=== PATIENT | male | born 2000 | race Two or more races ===

== ENCOUNTER 2025-03-08 21:52 | Emergency (ER) | payer BC, SELFPAY ==
[2025-03-08 22:08] VITALS: TEMP 38.8
[2025-03-08 22:11] VITALS: BP 126/60; PULSE 104; RESP 18; O2SAT 97; BMI 23.8
--- NOTE | 2025-03-08 22:33 | EDNOTE_ITS ---
Upper Respiratory Inf. RME/HPI General Chief Complaint: Flu Like Symptoms Stated Complaint: FEVER COUGH CONGESTION Time Seen by Provider: 03/08/25 22:12 Arrival date/time: 03/08/25 21:52 24M with no significant PMH presents to ED with several days of nasal congestion/pain, cough, and fevers/chills. Limitations: no limitations Related Data Previous Rx's ?Medication ?Instructions ?Recorded albuterol sulfate 90 mcg/actuation See Rx Instructions inhalation 11/08/19 aerosol inhaler .COMPLEX PRN wheezing / coug h / shortness of breath #6.7 grams benzonatate 100 mg capsule See Rx Instructions .Route 11/08/19 (Tessalon Perles) .COMPLEX cough #30 caps inhalational spacing device #1 ea 11/08/19 (Aerochamber MV spacer) methylprednisolone 4 mg tablets in See Rx Instructions PO PER PKG DIR 11/08/19 a dose pack (Medrol (Munir)) #21 tabs amoxicillin 875 mg-potassium 1 tab PO BID 5 days #10 t abs 03/08/25 clavulanate 125 mg tablet Allergies Allergy/AdvReac Type Severity Reaction Status Date / Time No Known Allergies Allergy Verified 03/08/25 22:03 Review of Systems Review of Systems Systems Reviewed: All systems reviewed, normal except as documented Constitutional Constitutional: Reports system reviewed and no additional complaints, except as documented, Reports as per HPI, Reports chills, Reports fever(s) and Denies headache(s) ENT Ears, Nose, Mouth, and Throat: Reports as per HPI, Denies disequilibrium, Denies headache(s), Reports nasal congestion and Reports nasal discharge Cardiovascular Cardiovascular: Reports system reviewed and no additional complaints, except as documented, Denies chest pain and Denies dyspnea Respiratory Respiratory: Reports system reviewed and no additional complaints, except as documented, Reports as per HPI, Reports cough and Denies dyspnea Gastrointestinal Gastrointestinal: Reports system reviewed and no additional complaints, except as documented, Denies abdominal pain, Denies nausea and Denies vomiting Neurologic Neurologic: Reports system reviewed and no additional complaints, except as documented, Denies confusion, Denies disequilibrium and Denies headache(s) Psychiatric Psychiatric: Denies confusion Past Medical History Past Medical History CARDIAC: Negative Congestive Heart Failure RESPIRATORY: Negative Chronic Obstructive Pulmonary Disease (COPD) GENITOURINARY: Negative Renal Disease ENDOCRINE: Negative Diabetes Mellitus Type 1 or Diabetes Mellitus Type 2 Social History SMOKING STATUS: Never smoker ED Exam General Limitations: Present no limitations General appearance: Present alert and in no apparent distress Head Head exam: Present atraumatic Eye Eye exam: Present normal appearance, PERRL and EOMI ENT ENT exam: Present normal oropharynx and mucous membranes moist Expanded ENT Exam Nose exam: Present sinus tenderness Neck Neck exam: Present normal inspection, full ROM and trachea midline Chest Chest inspection: Present normal inspection and symmetric chest wall rise Respiratory Respiratory exam: Present normal lung sounds bilaterally Cardiovascular Cardiovascular exam: Present regular rate, normal rhythm and normal heart sounds Abdominal Exam Abdominal exam: Present soft and normal bowel sounds Extremities Exam Extremities exam: Present normal inspection and full ROM Back Exam Back exam: Present normal inspection and full ROM Neurological Exam Neurological exam: Present alert, oriented X3 and CN II-XII intact Psychiatric Psychiatric exam: Present normal affect and normal mood Skin Skin exam: Present warm, dry, intact and normal color Course Quality Measures none Orders Category Date Time Status Bedside COVID-19 Antigen Test NOW Care 03/08/25 22:17 Active Bedside Influenza A&B Antigen Test NOW Care 03/08/25 22:17 Completed Amoxicillin/Pot Clav 875 [Augmentin 875] Med 03/08/25 22:31 Discontinued 1 tab PO X1 ONE Ibuprofen Tab [Motrin Tab] Med 03/08/25 22:31 Discontinued 800 mg PO X1 ONE Vital Signs Vital signs: Vital Signs Temperature 101.9 F H 03/08/25 22:08 O2 at 97% on RA and WNLs (see charted VS) Upper Respiratory Infection MDM Narrative MDM Narrative:: 24M with no significant PMH presents to ED with several days of nasal congestion/pain, cough, and fevers/chills. Physical exam reveals sinus tenderness, but otherwise clear oropharynx and lungs. Normal WOB. Patient is febrile, but does not appear toxic. Gait normal. Speech normal. Swabs neg. Likely sinusitis. Temp reduced with meds. Patient data External records reviewed:: [facility], [place] previous records Clinical information provided by:: patient Social determinants that could affect healthcare access:: none Patient has the following chronic illnesses:: none How is presenting disease/condition affected by chronic disease/condition?: no chronic disease Evaluation data The following diagnostics were reviewed and interpreted by me:: lab results Lab and/or radiology exams considered but not ordered:: ordered Interpretation Summary: above Medications / Prescriptions Medications or Prescriptions considered but not ordered:: ordered Medication administrations:: Medication Administration History Discontinued Medications Amoxicillin/Clavulanate Potassium (Amoxicillin/Pot Clav 875 Tablet) 1 tab PO X1 ONE Stop: 03/08/25 22:32 Last Admin: 03/08/25 22:46 Dose: 1 tab Documented By: YARELIS Ibuprofen (Ibuprofen Tab 400 Mg Tablet) 800 mg PO X1 ONE Stop: 03/08/25 22:32 Last Admin: 03/08/25 22:45 Dose: 800 mg Documented By: YARELIS above Consultations Consultation(s) initiated? (list below): No Diagnosis Upper Respiratory Differential Diagnosis: upper respiratory infection, croup, otitis media, sinusitis, viral infection, bronchitis, influenza and pharyngitis Most likely diagnosis given after review of the tests above:: sinusitis Admission Indicated Admission indicated?: not indicated Admission Request Was there a request for admission?: No Disposition Plan Disposition Plan: Discharge Discharge Attestation Discharge Attestation: The patient and all family members were given an opportunity to ask questions and understood the discharge instructions. Discharge instructions specifically effects, indications for sooner follow up or return to the emergency department, and the expected course of current diagnosis. Patient condition: Stable Discharge Plan Plan Patient Disposition: HOME (Self Care) Discharge Disposition comment: Stable Prescriptions/Referrals Prescriptions/Med Rec: New amoxicillin-pot clavulanate 875-125 mg tablet 1 tab PO BID 5 Days Qty: 10 0RF No Action (DME) Aerochamber MV spacer See Dose Instructions .ROUTE .MEDSUPPLY Qty: 1 0RF Dose Instruction: As directed Rx Instructions: As directed albuterol sulfate 90 mcg/actuation HFA aerosol inhaler See Rx Instructions INH .COMPLEX PRN (Reason: wheezing / cough / shortness of breath) Qty: 6.7 0RF Rx Instructions: INH PRN; 1-2 puffs Q4-6 hours prn. administer with spacer methylprednisolone [Medrol (Munir)] 4 mg tablets,dose pack See Rx Instructions PO PER PKG DIR Qty: 21 0RF Rx Instructions: PO PER PKG DIR benzonatate [Tessalon Perles] 100 mg capsule See Rx Instructions .Route .COMPLEX Qty: 30 0RF Rx Instructions: 1-2 cap(s) PO Q8 hours prn cough Problem List Clinical Impression: Sinusitis Patient/Caregiver Discharge Instructions Education Materials: ED Sinusitis (Antibiotic Treatment) Additional Instructions: Please follow-up with PCP within 24-48 hours and return immediately if symptoms worsen. Ibuprofen/Tylenol can be used simultaneously for greater fever/pain control. Benadryl is good for cough, congestion, and sleep. Print Language: [place] Stand Alone Forms: Work/School Release, Patient Portal Info Letter PA/ZANE Supervising Physician PA/ZANE Supervising Physician: Dr. Miranda
[2025-03-08] MEDS: IBUPROFEN TAB 400 MG TABLET 800 MG PO (22:45)
[2025-03-08] MEDS: AMOXICILLIN/POT CLAV 875 TABLET 1 TAB PO (22:46)
[2025-03-08 23:37] VITALS: BP 124/61; PULSE 98; RESP 18; TEMP 37.3; O2SAT 96
== END 2025-03-09 00:01 | disposition home or self-care (01) ==
LOC: SERX 03-09 04:29
PROVIDERS: Emergency Provider Emergency Medicine; PCP Family Medicine
DX: J32.9 Chronic sinusitis, unspecified (principal)
CPT/HCPCS: 87400; 87811; 99283; A9270

== ENCOUNTER → 2025-05-11 | Outpatient (CLI) | payer BC, SELFPAY ==
[2025-05-11 17:46] LABS: Alanine Aminotransferase 12 U/L (10-49); Albumin, Serum 4.7 gm/dL (3.5-5.0); Alkaline Phosphatase 61 U/L (46-116); Aspartate Amino Transferase 19 U/L (0-34); Bilirubin,Direct 0.1 mg/dL (0.0-0.3); Bilirubin,Total 0.4 mg/dL (0.3-1.2); Total Protein 7.3 gm/dL (5.7-8.2)
== END | disposition home or self-care (01) ==
LOC: COPL 15:54
PROVIDERS: PCP Registered Nurse; Referring Provider Registered Nurse; Visit Provider Registered Nurse
DX: B38.9 Coccidioidomycosis, unspecified (principal)
CPT/HCPCS: 36415; 80076